=== PATIENT | female | born 1940 ===

== ENCOUNTER 2017-06-30 12:16 | Inpatient (IN) | payer MEDICARE, OTHER ==
[~2017-06-30] VITALS: Ht 157.5 cm; Wt 43.8 kg
[2017-06-30 13:00] VITALS: BP 118/78
[2017-06-30] MEDS ORDERED: DOXE25CA2 PO (13:32)
[2017-06-30] MEDS ORDERED: FAMOTIDINE 20 MG TAB PO ONE (14:30)
[2017-06-30] MEDS ORDERED: GOLYTELY 4L KIT PO ONE (14:45)
[2017-06-30 14:50] LABS: Basophils # (auto) 0 uL; Eosinophils # (auto) 0 uL; Monocytes # (auto) 1.3 uL
[2017-06-30 14:51] LABS: Basophils % (auto) 0.5 % (0.0-2.0); Eosinophils % (auto) 0.3 % (0.0-7.0); Hematocrit 34.1 % (36.0-46.0); Hemoglobin 11.1 g/dL (12.2-16.2); Lymphocytes # (auto) 1.6 uL; Lymphocytes % (auto) 15.9 % (10.0-50.0); Mean Corpuscular Hemoglobin 27.4 pg (28.0-32.0); Mean Corpuscular Hgb Conc. 32.5 g/dL (32.0-36.0); Mean Corpuscular Volume 84.3 fL (80.0-100.0); Mean Platelet Volume 7.6 fL (6.9-10.8); Monocytes % (auto) 12.4 % (0.0-12.0); Neutrophils # (auto) 7.3 uL; Neutrophils % (auto) 70.9 % (37.0-80.0); Platelet Count (auto) 463 10^3/uL (140-450); White Blood Cell 10.2 10^3/uL (4.4-10.8)
[2017-06-30] MEDS ORDERED: GASTROGRAFIN 30 ML SOL ONE (14:51)
[2017-06-30] MEDS ORDERED: IOHEXOL 300 MG/ML 100ML BOTTLE IJ ONE (14:51)
[2017-06-30 15:10] LABS: Albumin 2.5 g/dL (3.4-5.0); BUN/Creatinine Ratio 16.5; Bilirubin, Total 0.3 mg/dL (0.2-1.0); INR 1.04 (0.9-1.15); Partial Thromboplastin Time 28.9 sec (22.64-33.71); Potassium 4.1 mmol/L (3.5-5.1); Prothrombin Time 11.3 sec (9.37-12.3); Total Protein 7.1 g/dL (6.4-8.2)
[2017-06-30] MEDS: SODIUM CHLORIDE 0.9% 1,000 ML IV SCH (15:23)
[2017-06-30 17:00] VITALS: BP 153/82
[2017-06-30] MEDS ORDERED: FAMOTIDINE 20 MG TAB PO SCH (22:00)
[2017-06-30 22:19] VITALS: BP 137/86
[2017-07-01 05:44] VITALS: BP 143/75
[2017-07-01] MEDS ORDERED: GOLYTELY 4L KIT PO ONE (06:00)
[2017-07-01 09:00] VITALS: BP 157/76
[2017-07-01] MEDS: FAMOTIDINE 20 MG TAB PO SCH (10:00)
[2017-07-01] MEDS: SODIUM CHLORIDE 0.9% 1,000 ML IV SCH ×3 (10:00→23:31)
[2017-07-01] MEDS ORDERED: SODIUM CHLORIDE LOCK 10 ML ONE (10:03)
[2017-07-01] MEDS ORDERED: diphenhdrAMINE HCL 50 MG/1 ML VL ONE (10:03)
[2017-07-01 13:00] VITALS: BP 142/78
[2017-07-01] MEDS: MIDAZOLAM HCL 5 MG/ML-1ML VIAL ONE ×3 (13:43→13:52)
[2017-07-01] MEDS: fentaNYL CITRATE 100 MCG/2 ML VL ONE ×3 (13:43→13:52)
[2017-07-01 17:00] VITALS: BP 137/71
[2017-07-01 22:41] VITALS: BP 134/64
[2017-07-02 05:30] VITALS: BP 120/78
[2017-07-02] MEDS: SODIUM CHLORIDE 0.9% 1,000 ML IV SCH ×2 (06:00→16:00)
[2017-07-02 08:00] VITALS: BP 140/72
[2017-07-02 09:14] VITALS: BP 140/72
[2017-07-02] MEDS: FAMOTIDINE 20 MG TAB PO SCH (09:53)
[2017-07-02] MEDS ORDERED: ACETAMINOPHEN 325 MG TAB PO PRN (14:30)
[2017-07-02 14:43] VITALS: BP 139/75
[2017-07-02 17:24] VITALS: BP 128/70
[2017-07-02 21:20] VITALS: BP 118/71
[2017-07-03] MEDS: SODIUM CHLORIDE 0.9% 1,000 ML IV SCH ×2 (02:00→12:00)
[2017-07-03 05:29] VITALS: BP 132/74
[2017-07-03 08:00] VITALS: BP 136/69
[2017-07-03] MEDS: FAMOTIDINE 20 MG TAB PO SCH (09:22)
[2017-07-03 09:42] VITALS: BP 136/69
[2017-07-03] MEDS ORDERED: LIDOCAINE VISCOUS 2% 15ML UD ONE (10:46)
[2017-07-03] MEDS: MIDAZOLAM HCL 5 MG/ML-1ML VIAL ONE ×2 (10:49→10:52)
[2017-07-03] MEDS: fentaNYL CITRATE 100 MCG/2 ML VL ONE ×2 (10:49→10:52)
[2017-07-03 13:00] VITALS: BP 139/66
[2017-07-03] MEDS ORDERED: SODIUM CHLORIDE LOCK 10 ML ONE (14:34)
[2017-07-03] MEDS ORDERED: diphenhdrAMINE HCL 50 MG/1 ML VL ONE (14:35)
[2017-07-03 15:16] VITALS: BP 139/66
[2017-07-03 17:14] VITALS: BP 113/64
== END 2017-07-03 18:00 | disposition home or self-care (01) | DRG 391 ==
LOC: EAST 12:16 → CENTRAL 15:09
PROVIDERS: ADMIT Internal Medicine Cardiovascular Disease; ATTEND Internal Medicine Cardiovascular Disease
PROC: 0DJD8ZZ Inspection of Lower Intestinal Tract, Via Natural or Artificial Opening Endoscopic (ICD-10-PCS; 2017-07-01)
PROC: 0DJ08ZZ Inspection of Upper Intestinal Tract, Via Natural or Artificial Opening Endoscopic (ICD-10-PCS; principal; 2017-07-03 10:45)
DX: R13.10 Dysphagia, unspecified (principal); E43 Unspecified severe protein-calorie malnutrition; M32.9 Systemic lupus erythematosus, unspecified; E86.9 Volume depletion, unspecified; R64 Cachexia; Z68.1 Body mass index [BMI] 19.9 or less, adult; M19.90 Unspecified osteoarthritis, unspecified site; K57.30 Diverticulosis of large intestine without perforation or abscess without bleeding; K64.8 Other hemorrhoids
CPT/HCPCS: 36415; 43235; 45378; 71010; 74177; 80053; 85025; 85610; 85730; 93005; J2250

== ENCOUNTER → 2018-02-19 | Outpatient (CLI) | payer MEDICARE ==
[~2018-02-19] VITALS: Ht 30.5 cm; Wt 0.5 kg
[~2018-02-19] MED LIST: ADENOSINE 36 MG in GIVE UN-DILUTED 0 ML IV ONE; ADENOSINE 90 MG/30 ML INJ IV ONE; DOXE25CA2 PO
[2018-02-19 11:53] LABS: Basophils # (auto) 0 uL; Basophils % (auto) 0.7 % (0.0-2.0); Eosinophils # (auto) 0.2 uL; Eosinophils % (auto) 3.2 % (0.0-7.0); Hematocrit 41.1 % (36.0-46.0); Hemoglobin 13.3 g/dL (12.2-16.2); Lymphocytes # (auto) 2.2 uL; Lymphocytes % (auto) 31.1 % (10.0-50.0); Mean Corpuscular Hemoglobin 28.2 pg (28.0-32.0); Mean Corpuscular Hgb Conc. 32.4 g/dL (32.0-36.0); Mean Corpuscular Volume 87.2 fL (80.0-100.0); Monocytes # (auto) 0.8 uL; Monocytes % (auto) 11.1 % (0.0-12.0); Neutrophils # (auto) 3.7 uL; Neutrophils % (auto) 53.9 % (37.0-80.0); Nucleated Red Blood Cells % 0.2 %; Platelet Count (auto) 324 10^3/uL (140-450); Red Blood Cells 4.71 10^6/uL (4.0-5.20); Red Cell Distribution Width 14.5 % (11.8-14.3); White Blood Cell 6.9 10^3/uL (4.4-10.8)
[2018-02-19 12:06] LABS: Albumin 3.9 g/dL (3.4-5.0); BUN/Creatinine Ratio 20.7; Bilirubin, Total 0.3 mg/dL (0.2-1.0); Calcium 10.7 mg/dL (8.5-10.1); Total Protein 7.8 g/dL (6.4-8.2)
[2018-02-19 12:15] LABS: Free T4 (Free Thyroxine) 1.14 ng/dL (0.89-1.76)
== END | disposition home or self-care (01) ==
LOC: Rad HDHVI 08:28
PROVIDERS: ATTEND Internal Medicine Cardiovascular Disease
DX: I07.1 Rheumatic tricuspid insufficiency (principal); E11.9 Type 2 diabetes mellitus without complications; E03.9 Hypothyroidism, unspecified; E55.9 Vitamin D deficiency, unspecified; D51.9 Vitamin B12 deficiency anemia, unspecified; N39.0 Urinary tract infection, site not specified; R64 Cachexia; K58.9 Irritable bowel syndrome, unspecified
CPT/HCPCS: 36415; 78452; 80053; 80061; 82306; 82607; 83036; 84436; 84439; 84443; 85025; 93005; 93306; 96374; 96375; A9500; J0153